=== PATIENT | female | born 1960 | race Caucasian/White ===

== ENCOUNTER 2016-09-25 11:49 | Emergency (ER) | payer OTHER ==
[2016-09-25] MEDS ORDERED: ONDANSETRON 4 MG VIAL ONE (13:14)
[2016-09-25] MEDS ORDERED: SODIUM CHLORIDE 0.9% 1,000 ML ONE (13:14)
== END 2016-09-25 14:43 | disposition home or self-care (01) ==
LOC: ER 11:49
DX: S22.9XXD Fracture of bony thorax, part unspecified, subsequent encounter for fracture with routine healing (principal); C34.90 Malignant neoplasm of unspecified part of unspecified bronchus or lung; Z79.899 Other long term (current) drug therapy; Z87.891 Personal history of nicotine dependence
CPT/HCPCS: 36415; 70450; 80053; 85025; 96361; 96374; 99284; J2405